=== PATIENT | male | born 1975 | race Caucasian/White ===

== ENCOUNTER 2017-11-26 22:57 | Emergency (ER) | payer OTHER ==
[2017-11-26 23:02] VITALS: BP 142/75; PULSE 67; TEMP 98.9; BMI 39.5
== END 2017-11-27 00:42 | disposition left against medical advice (07) ==
LOC: JER 22:57
DX: Z53.21 Procedure and treatment not carried out due to patient leaving prior to being seen by health care provider (principal)
CPT/HCPCS: 99281-25